=== PATIENT | female | born 1975 | race Caucasian/White ===

== ENCOUNTER → 2017-07-10 | Outpatient (CLI) | payer OTHER ==
[~2017-07-10] MED LIST: OMNIPAQUE 350 MG/ML, 100ML BOTTLE ONE
== END | disposition home or self-care (01) ==
LOC: RAD 13:54
PROVIDERS: ATTEND Family Medicine
DX: R07.89 Other chest pain (principal); R06.02 Shortness of breath
CPT/HCPCS: 71275; Q9967